=== PATIENT | male | born 1955 | race Two or more races ===

== ENCOUNTER 2023-01-31 21:23 | Emergency (ER) | payer MEDICAID, OTHER ==
[~2023-01-31] VITALS: Ht 162.6 cm; Wt 63.6 kg
[2023-01-31] MEDS ORDERED: KETOROLAC TROMETH 60MG/2ML VIAL IM ONE (23:15)
[2023-01-31] MEDS ORDERED: HYDROcodone-ACET 5/325MG TAB PO ONE (23:15)
[2023-01-31] MEDS ORDERED: IBUP-1454 PO (23:49)
[2023-01-31] MEDS ORDERED: HYDR-4902 PO (23:49)
[2023-02-01 00:29] VITALS: BP 122/74; PULSE 91; RESP 18; TEMP 98.4; O2SAT 96
== END 2023-02-01 00:39 | disposition home or self-care (01) ==
LOC: EDBD 21:23 → ER 21:33
DX: S43.101A Unspecified dislocation of right acromioclavicular joint, initial encounter (principal); S80.02XA Contusion of left knee, initial encounter; S09.8XXA Other specified injuries of head, initial encounter; W18.09XA Striking against other object with subsequent fall, initial encounter; Y93.89 Activity, other specified; Y92.89 Other specified places as the place of occurrence of the external cause; Y99.8 Other external cause status
CPT/HCPCS: 70450; 72125; 73030; 73562; 96372; 99285; J1885

== ENCOUNTER 2024-04-06 10:48 | Inpatient (IN) | payer OTHER, MEDICAID ==
[~2024-04-06] VITALS: Ht 162.6 cm; Wt 64.9 kg
[~2024-04-06 10:48] MED LIST: HYDR-4902 PO; IBUP-1454 PO
[2024-04-06 11:16] LABS: Basophils # (auto) 0.1 10 ^3/uL (0-0.2); Basophils % (auto) 0.9 % (0.0-2.0); Eosinophils # (auto) 0.2 10 ^3/uL (0-0.8); Eosinophils % (auto) 2.7 % (0.0-7.0); Hematocrit 40.6 % (41.0-53.0); Hemoglobin 14.2 g/dL (13.5-17.5); Lymphocytes # (auto) 2.7 10 ^3/uL (0.4-5.4); Lymphocytes % (auto) 36.3 % (10.0-50.0); Mean Corpuscular Hemoglobin 29.2 pg (28.0-32.0); Mean Corpuscular Volume 83.6 fL (80.0-100.0); Monocytes # (auto) 0.7 10 ^3/uL (0-1.3); Monocytes % (auto) 8.9 % (0.0-12.0); Neutrophils # (auto) 3.8 10 ^3/uL (1.6-8.6); Neutrophils % (auto) 51.2 % (37.0-80.0); Nucleated Red Blood Cells % 0.1 %; Platelet Count (auto) 335 10^3/uL (140-450); Red Blood Cells 4.85 10^6/uL (4.5-5.90); White Blood Cell 7.5 10^3/uL (4.4-10.8)
[2024-04-06 11:24] LABS: Urine Bacteria None Seen /hpf (None Seen)
[2024-04-06 11:30] LABS: INR 0.98 (0.9-1.15); Partial Thromboplastin Time 27.1 SEC (24.5-34.5); Prothrombin Time 10.4 sec (9.3-11.8)
[2024-04-06 11:33] LABS: Alanine Aminotransferase 31 U/L (7-40); Albumin 4.8 g/dL (3.2-4.8); Alkaline Phosphatase 80 U/L (46-116); Anion Gap 8 (5-15); Aspartate Aminotransferase 14 U/L (13-40); BUN/Creatinine Ratio 19.7 (10.0-20.0); Blood Urea Nitrogen 13 mg/dL (9-23); Calcium 9.9 mg/dL (8.7-10.4); Carbon Dioxide 25 mmol/L (20-31); Chloride 105 mmol/L (98-107); Glucose 111 mg/dL (74-106); Magnesium 1.7 mg/dL (1.6-2.6); Potassium 3.8 mmol/L (3.5-5.1); Sodium 138 mmol/L (136-145)
[2024-04-06 11:34] LABS: Bilirubin, Total 0.7 mg/dL (0.2-1.0); Total Protein 7.5 g/dL (5.7-8.2)
[2024-04-06 11:40] LABS: Urine Blood Negative /uL (Negative); Urine Clarity Clear (Clear); Urine Color Yellow (Yellow); Urine Mucus FEW (None Seen); Urine Protein, UAD Negative (Negative); Urine Specific Gravity 1.023 (1.001-1.035); Urine Urobilinogen Normal (Negative); Urine WBC <1 /hpf (0 - 3)
[2024-04-06] MEDS: ASPirin 81 mg TAB PO ONE ×2 (13:51→23:52)
[2024-04-06 18:00] VITALS: PULSE 95; RESP 18; O2SAT 98
[2024-04-06] MEDS ORDERED: MORPHINE SULFATE INJ 2 MG/ml SYRG IV PRN (22:00)
[2024-04-06] MEDS ORDERED: ACETAMINOPHEN 500 MG TAB PO PRN (22:00)
[2024-04-06 22:15] LABS: Erythrocyte Sedimentation Rate 8 mm/hr (0-20)
[2024-04-06] MEDS ORDERED: HYDROcodone-ACET 5/325MG TAB PO PRN (22:15)
[2024-04-06] MEDS ORDERED: DEXTROSE (50%) 50ML SYRG IV PRN (22:15)
[2024-04-06] MEDS ORDERED: hydrOXYzine 25 MG TAB or CAP PO PRN (22:15)
[2024-04-06] MEDS: PARoxetine 20 MG TAB PO ONE (23:01)
[2024-04-06] MEDS: GABAPENTIN 300 MG CAP PO ONE (23:02)
[2024-04-06] MEDS: ATORVASTATIN 20 MG TAB PO ONE (23:02)
[2024-04-06] MEDS: LOSARTAN POTASSIUM 50 MG TAB PO ONE (23:03)
[2024-04-06] MEDS: INSULIN LANTUS (GLARGINE) 1 /0.01ml (100units/ml) SC SCH (23:08)
[2024-04-06] MEDS: InsuLIN REG 1unit/0.01ml Soln (100units/ml) SC SCH (23:08)
[2024-04-06] MEDS: ACCU-CHEK COMFORT CURVE STRIP VI SCH (23:11)
[2024-04-06 23:27] LABS: COVID19 ANTIGEN SOFIA FIA NEGATIVE (NEGATIVE); Rapid Influenza A Negative (Negative); Rapid Influenza B Negative (Negative)
[2024-04-07] VITALS (9 sets, daily range): BP systolic 121–151; BP diastolic 71–86; PULSE 76–96; RESP 14–20; TEMP 97.6–98.6; O2SAT 92–96
[2024-04-07] MEDS: MAGNESIUM OXIDE 400 MG TAB PO ONE (02:44)
[2024-04-07] MEDS: ERGOCALCIFEROL 50,000 UNIT(1.25MG) CAP PO SCH (02:44)
[2024-04-07] MEDS ORDERED: METF-762 PO (05:02)
[2024-04-07] MEDS ORDERED: ATOR40TA52 PO (05:02)
[2024-04-07] MEDS ORDERED: METF-1145 PO (05:02)
[2024-04-07] MEDS ORDERED: INSUINJ2 SC (05:02)
[2024-04-07] MEDS ORDERED: LOSA-534 PO (05:02)
[2024-04-07 06:01] LABS: Basophils # (auto) 0.1 10 ^3/uL (0-0.2); Basophils % (auto) 0.5 % (0.0-2.0); Eosinophils # (auto) 0.1 10 ^3/uL (0-0.8); Eosinophils % (auto) 1.2 % (0.0-7.0); Hemoglobin 14.3 g/dL (13.5-17.5); Lymphocytes # (auto) 1.6 10 ^3/uL (0.4-5.4); Lymphocytes % (auto) 14.7 % (10.0-50.0); Mean Corpuscular Hemoglobin 29.1 pg (28.0-32.0); Mean Corpuscular Hgb Conc. 34.8 g/dL (32.0-36.0); Mean Corpuscular Volume 83.5 fL (80.0-100.0); Monocytes # (auto) 0.6 10 ^3/uL (0-1.3); Monocytes % (auto) 5.5 % (0.0-12.0); Neutrophils # (auto) 8.4 10 ^3/uL (1.6-8.6); Neutrophils % (auto) 78.1 % (37.0-80.0); Nucleated Red Blood Cells % 0.1 %; Platelet Count (auto) 324 10^3/uL (140-450); Red Cell Distribution Width 13.3 % (11.8-14.3); White Blood Cell 10.8 10^3/uL (4.4-10.8)
[2024-04-07 06:29] LABS: Chloride 103 mmol/L (98-107); Potassium 3.9 mmol/L (3.5-5.1); Sodium 138 mmol/L (136-145)
[2024-04-07 06:30] LABS: Anion Gap 7 (5-15); Calcium 10.1 mg/dL (8.7-10.4); Carbon Dioxide 28 mmol/L (20-31)
[2024-04-07 06:35] LABS: Blood Urea Nitrogen 13 mg/dL (9-23); Glucose 120 mg/dL (74-106)
[2024-04-07 06:55] LABS: Triglycerides 92 mg/dL (< 150)
[2024-04-07 06:56] LABS: LDL Cholesterol 117 mg/dL (< 100)
[2024-04-07 06:57] LABS: Cholesterol 178 mg/dL (< 200); HDL Cholesterol 55 mg/dL (40-59)
[2024-04-07] MEDS: LOSARTAN POTASSIUM 50 MG TAB PO SCH (10:07)
[2024-04-07] MEDS: ASPirin 81 mg TAB PO SCH (10:07)
[2024-04-07] MEDS: GABAPENTIN 300 MG CAP PO SCH (10:07)
[2024-04-07] MEDS: ENOXAPARIN SOD 40 MG/0.4 ML SYRINGE SC SCH (10:08)
[2024-04-07] MEDS ORDERED: DEXTROSE (50%) 50ML SYRG IV PRN (11:15)
[2024-04-07] MEDS: ACCU-CHEK COMFORT CURVE STRIP VI SCH (12:10)
[2024-04-07] MEDS: InsuLIN REG 1unit/0.01ml Soln (100units/ml) SC SCH (12:10)
[2024-04-07] MEDS: PARoxetine 20 MG TAB PO SCH (22:30)
[2024-04-07] MEDS: ATORVASTATIN 20 MG TAB PO SCH (22:30)
[2024-04-08 01:00] VITALS: BP 121/65; PULSE 75; RESP 18; TEMP 98; O2SAT 97
[2024-04-08 05:00] VITALS: BP 124/82; PULSE 77; RESP 18; TEMP 97.7; O2SAT 94
[2024-04-08 05:31] LABS: Basophils # (auto) 0.1 10 ^3/uL (0-0.2); Basophils % (auto) 0.7 % (0.0-2.0); Eosinophils # (auto) 0.2 10 ^3/uL (0-0.8); Eosinophils % (auto) 3.1 % (0.0-7.0); Hematocrit 38.4 % (41.0-53.0); Hemoglobin 13.7 g/dL (13.5-17.5); Lymphocytes # (auto) 1.8 10 ^3/uL (0.4-5.4); Lymphocytes % (auto) 26.5 % (10.0-50.0); Mean Corpuscular Hemoglobin 29.6 pg (28.0-32.0); Mean Corpuscular Hgb Conc. 35.7 g/dL (32.0-36.0); Mean Corpuscular Volume 82.8 fL (80.0-100.0); Monocytes # (auto) 0.7 10 ^3/uL (0-1.3); Monocytes % (auto) 10.4 % (0.0-12.0); Neutrophils # (auto) 4.1 10 ^3/uL (1.6-8.6); Neutrophils % (auto) 59.3 % (37.0-80.0); Nucleated Red Blood Cells % 0.1 %; Platelet Count (auto) 297 10^3/uL (140-450); Red Blood Cells 4.63 10^6/uL (4.5-5.90)
[2024-04-08 05:41] LABS: Chloride 104 mmol/L (98-107); Potassium 3.9 mmol/L (3.5-5.1); Sodium 138 mmol/L (136-145)
[2024-04-08 05:42] LABS: Anion Gap 7 (5-15); Calcium 9.5 mg/dL (8.7-10.4); Carbon Dioxide 27 mmol/L (20-31)
[2024-04-08 05:47] LABS: Glucose 116 mg/dL (74-106)
[2024-04-08 06:21] LABS: BUN/Creatinine Ratio 21.9 (10.0-20.0); Blood Urea Nitrogen 14 mg/dL (9-23)
[2024-04-08 08:00] VITALS: PULSE 76
[2024-04-08 08:46] VITALS: BP 126/81; PULSE 67; RESP 16; TEMP 98; O2SAT 99
[2024-04-08 13:00] VITALS: BP 150/74; PULSE 85; RESP 16; TEMP 97.7; O2SAT 98
[2024-04-08] MEDS ORDERED: ERGO1CAP23 PO (14:26)
[2024-04-08] MEDS ORDERED: PAR20T PO (14:26)
[2024-04-08] MEDS ORDERED: ASPI-325 PO (14:26)
[2024-04-08 16:38] VITALS: BP 120/66; PULSE 78; RESP 16; TEMP 98.1; O2SAT 99
== END 2024-04-08 17:47 | disposition home or self-care (01) | DRG 882 ==
LOC: ER 10:59 → TELE-WESTW 22:02 → TELE 22:02 → TELE-WESTW 04-07 03:40
PROVIDERS: ADMIT Internal Medicine; ATTEND Emergency Medicine
DX: F45.41 Pain disorder exclusively related to psychological factors (principal); E11.9 Type 2 diabetes mellitus without complications; I10 Essential (primary) hypertension; F41.0 Panic disorder [episodic paroxysmal anxiety]; F32.A Depression, unspecified; G47.00 Insomnia, unspecified; F14.10 Cocaine abuse, uncomplicated; F12.10 Cannabis abuse, uncomplicated; Z20.822 Contact with and (suspected) exposure to COVID-19; E78.5 Hyperlipidemia, unspecified; G89.29 Other chronic pain; Z83.3 Family history of diabetes mellitus; Z87.891 Personal history of nicotine dependence; Z79.82 Long term (current) use of aspirin
CPT/HCPCS: 36415; 71045; 80048; 80053; 80061; 80320; 81001; 82306; 82607; 82962; 83036; 83735; 83880; 84443; 84484; 85025; 85379; 85610; 85652; 85730; 86141; 87426; 87804; 93005; 93306; 99291; G0378; J1815